=== PATIENT | male | born 1955 | race Caucasian/White ===

== ENCOUNTER 2019-02-04 14:45 | Emergency (ER) | payer BC ==
[~2019-02-04] VITALS: Ht 188 cm; Wt 97.7 kg
[2019-02-04 14:50] VITALS: BP 130/88
--- NOTE | 2019-02-04 14:50 | NUR ---
PT BIBA TO ED BED 11
--- NOTE | 2019-02-04 15:00 | NUR ---
PT BIBA TO ED WITH C/O PALPITATION S/P GARDENING FOR 4-6 HOURS THIS AM. AAO X4, GCS 15, ABLE TO SPEAK WITH FULL COMPLETE SENTENCES. RESPIRATIONS EVEN AND UNALBORED, BL LUNG CLEAR. SKIN WARM/PINK/DRY, +PMSC. ABDOMEN SOFT, NON DISTENDED, ACTIV BOWEL SOUND X4. 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 DENIES PAIN AND DISCOMFORT AT THIS TIME. WILL CONTINUE TO MONITOR
--- NOTE | 2019-02-04 15:30 | NUR ---
DR. ROGERS AT BEDSIDE EVALUATING PT
[2019-02-04 15:39] LABS: APPEARANCE,URINE CLEAR (CLEAR); BILIRUBIN,URINE NEGATIVE (NEGATIVE); BLOOD, URINE NEGATIVE (NEGATIVE); COLOR,URINE YELLOW (YELLOW); LEUKOCYTE ESTERASE ,URINE NEGATIVE (NEGATIVE); NITRITE, URINE NEGATIVE (NEGATIVE); PH,URINE 5.5 (5.0-9.0); UGLUCOSE NEGATIVE (NEGATIVE)
[2019-02-04 15:39] LABS: BASOPHILS % (AUTO) 0.2 % (0.0-2.0); EOSINOPHILS # (AUTO) 0.1 K/uL (0-0.4); EOSINOPHILS % (AUTO) 0.9 % (0.0-4.0); HEMOGLOBIN 15.7 g/dL (12.0-18.0); LYMPHOCYTES # (AUTO) 1.4 K/uL (2.0-11.5); LYMPHOCYTES % (AUTO) 13.1 % (20.5-51.1); MEAN CORPUSCULAR HEMOGLOBIN 30 pg (27-31); MEAN CORPUSCULAR HGB CONC 34 g/dL (33-37); MEAN CORPUSCULAR VOLUME 86.7 fL (80-94); MONOCYTES # (AUTO) 1.1 K/uL (0.8-1.0); MONOCYTES % (AUTO) 10.1 % (1.7-9.3); NEUTROPHILS # (AUTO) 8.3 K/uL (1.8-7.7); NEUTROPHILS % (AUTO) 75.7 % (42.2-75.2); PLATELET COUNT (AUTO) 237 K/uL (140-450); RED BLOOD CELL COUNT(AUTO) 5.31 MIL/uL (4.20-6.10); RED CELL DISTRIBUTION WIDTH 13.4 % (11.6-13.7)
[2019-02-04] MEDS ORDERED: LORazepam 2 MG/ML VIAL IVP ONE (15:40)
[2019-02-04 15:52] LABS: ANION GAP 10.9 (8-16); CARBON DIOXIDE 26.7 mmol/L (21-32); CREATININE 1.4 mg/dL (0.7-1.3); POTASSIUM 3.6 mmol/L (3.5-5.1)
[2019-02-04] MEDS: NACL 0.9% 2,000 ML IV SCH ×2 (15:53→15:55)
--- NOTE | 2019-02-04 15:56 | NUR ---
IVP/IVF GIVEN-NADR AR THIS TIME, NSR W/O ECT NOTED. NO CP/SOB AT THIS TIME
[2019-02-04 15:58] LABS: ALBUMIN 3.5 g/dL (3.4-5.0); TOTAL BILIRUBIN 0.5 mg/dL (0.0-1.0)
--- NOTE | 2019-02-04 17:11 | NUR ---
PT RESTING IN BED, REMAINS GCS 15, RESPIATIONS EVEN AND UNLABORED. PIANO INSTRUCTOR SR, BP WNL. WILL CONTINUE TO MONITOR
[2019-02-04 17:22] LABS: ACETONE, SERUM NEGATIVE (NEGATIVE)
[2019-02-04 17:35] VITALS: BP 128/78
--- NOTE | 2019-02-04 17:35 | NUR ---
Patient discharged with v/s stable. Written and verbal after care instructions given and explained. Patient verbalized understanding. Ambulatory with steady gait. All questions addressed prior to discharge. Advised to follow up with PMD.
[2019-02-04 17:45] LABS: FREE T4 (FREE THYROXINE) 0.97 ng/dL (0.76-1.46); MAGNESIUM 2.1 mg/dL (1.8-2.4); THYROID STIMULATING HORMONE 0.47 uIU/mL (0.34-3.74)
[2019-02-05 09:06] LABS: T3 UPTAKE 29 % (24-39)
[2019-02-05 20:36] LABS: MYOGLOBIN, SERUM 228 ng/mL (28 - 72)
== END 2019-02-04 17:35 | disposition home or self-care (01) ==
LOC: MED 14:45
DX: E86.0 Dehydration (principal); R00.0 Tachycardia, unspecified; K21.9 Gastro-esophageal reflux disease without esophagitis
CPT/HCPCS: 36415; 71045; 80053; 81003; 82009; 82550; 82553; 83605; 83735; 83874; 83880; 84439; 84443; 84479; 84484; 85025; 85379; 93005; 96361; 96374; 99284; J2060; J7030; Q0092